=== PATIENT | male | born 1940 | race Caucasian/White ===

== ENCOUNTER 2019-09-11 11:49 | Outpatient (CLI) | payer MEDICARE, BC ==
[2019-09-11] VITALS (21 sets, daily range): BP systolic 116–150; BP diastolic 70–94
[~2019-09-11 11:49] MED LIST: CARV3.12 PO; PANT-47 PO; RIVA15TA PO
== END 2019-09-11 23:59 | disposition home or self-care (01) ==
LOC: CARD DIAG 11:49
PROVIDERS: ATTEND Internal Medicine Cardiovascular Disease
DX: R42 Dizziness and giddiness (principal)
CPT/HCPCS: 93660

== ENCOUNTER 2019-11-20 06:13 | Day surgery (SDC) | payer MEDICARE, BC ==
[2019-11-19 12:43] LABS: BASOPHILS # (AUTO) 0.1 X10'3 (0-0.2); BASOPHILS % (AUTO) 1.3 % (0-1); EOSINOPHILS # (AUTO) 0.2 X10'3 (0-0.9); EOSINOPHILS % (AUTO) 2.8 % (0-6); HEMATOCRIT 41.5 % (42.0-52.0); LYMPHOCYTES # (AUTO) 1.8 X10'3 (1.1-4.8); LYMPHOCYTES % (AUTO) 22.7 % (21-51); MEAN CORPUSCULAR HGB CONC 33.7 g/dL (33.0-36.5); MEAN CORPUSCULAR VOLUME 97.9 FL (78-98); MEAN PLATELET VOLUME 8.1 FL (7.4-10.4); MONOCYTES # (AUTO) 0.8 X10'3 (0-0.9); MONOCYTES % (AUTO) 9.6 % (2-12); NEUTROPHILS # (AUTO) 5.1 X10'3 (1.8-7.7); NEUTROPHILS % (AUTO) 63.6 % (42-75); PLATELET COUNT 186 X10'3 (140-440); RED BLOOD COUNT 4.24 X10'6 (4.70-6.10); RED CELL DISTRIBUTION WIDTH 12.7 % (11.5-14.5)
[2019-11-19 12:52] LABS: ALBUMIN 3.2 G/DL (3.4-5.0); ANION GAP 7 (8-16); BLOOD UREA NITROGEN 19 MG/DL (7-18); BUN/CREATININE RATIO 18.1 (5.4-32.0); CALCIUM 8.8 MG/DL (8.5-10.1); CHLORIDE 105 MMOL/L (99-107); CREATININE 1.05 MG/DL (0.60-1.10); GLUCOSE 100 MG/DL (70-104); POTASSIUM 4.1 MMOL/L (3.5-5.1); SODIUM 142 MMOL/L (135-145); TOTAL CARBON DIOXIDE 30.4 MMOL/L (24-32); eGFR 68 ML/MIN
[2019-11-19 12:56] LABS: PARTIAL THROMBOPLASTIN TIME 27 SECONDS (22-32)
[~2019-11-20] VITALS: Ht 182.9 cm; Wt 150.2 kg
[2019-11-20] VITALS (10 sets, daily range): BP systolic 110–166; BP diastolic 38–84
[2019-11-20] MEDS ORDERED: RIVA20TA PO (06:38)
[2019-11-20] MEDS ORDERED: FLEC50TA28 PO (06:38)
[2019-11-20] MEDS ORDERED: CARV3.12 PO (06:42)
[2019-11-20] MEDS ORDERED: PANT-47 PO (06:42)
[2019-11-20] MEDS ORDERED: normal saline 1000ml 1,000 ML IV SCH (06:55)
[2019-11-20] MEDS ORDERED: cefazolin/dext.iso 2gm/50ml 50 ML IV ONE (07:00)
[2019-11-20] MEDS ORDERED: ceFAZolin/D5W- 1GM premix 50 ML IV ONE (07:30)
[2019-11-20] MEDS ORDERED: midazolam 2 mg/2 ml injection ONE ×2 (07:38→08:31)
[2019-11-20] MEDS ORDERED: fentaNYL/PF 50MCG/1 ML 2ML syringe ONE ×2 (07:38→09:37)
[2019-11-20] MEDS ORDERED: LIDOcaine 1% W/epiNEPHrine 1:100,000 20ml vial ONE ×2 (07:39→08:44)
[2019-11-20] MEDS ORDERED: ceFAZolin 1000mg inj ONE (07:39)
[2019-11-20] MEDS ORDERED: iohexol 350 MG/ML 50ML vial IV ONE ×2 (08:25→08:36)
[2019-11-20] MEDS ORDERED: proCHLORperazine 10 MG/2 ml inj ONE (08:47)
--- NOTE | 2019-11-20 10:05 | NUR ---
Pt back in room. IV not working, unable to flush. Caitlin CAMARENA PICC line nurse being paged to start new IV. Pt denies pain, denies cp. Pt site dressing CD&I. VS stable as charted. Pt sitting up in bed A/O.
[2019-11-20] MEDS ORDERED: HYDROcodone/acetaminophen 10/325mg tab PO PRN (10:15)
[2019-11-20] MEDS ORDERED: HYDROcodone/acetaminophen 5mg/325mg tablet PO PRN (10:15)
--- NOTE | 2019-11-20 10:15 | NUR ---
Problems reprioritized. Patient report given, questions answered & plan of care reviewed with Yu CAMARENA.
[2019-11-20] MEDS ORDERED: vancomycin/NS 1 GM ADD-VANTAGE 250 ML X 1 DOSE IV ONE (12:00)
[2019-11-20] MEDS ORDERED: ceFAZolin 1GM/D5W- ADD-VANTAGE 50 ML IV SCH (16:00)
== END 2019-11-20 15:00 | disposition home or self-care (01) ==
LOC: SSTAY O 06:13
PROVIDERS: ATTEND Internal Medicine Cardiovascular Disease
DX: I49.5 Sick sinus syndrome (principal); I10 Essential (primary) hypertension; E78.5 Hyperlipidemia, unspecified; G47.30 Sleep apnea, unspecified; E55.9 Vitamin D deficiency, unspecified; I48.0 Paroxysmal atrial fibrillation; E66.9 Obesity, unspecified; Z68.41 Body mass index [BMI] 40.0-44.9, adult; Z86.718 Personal history of other venous thrombosis and embolism; Z85.828 Personal history of other malignant neoplasm of skin; Z98.890 Other specified postprocedural states; Z87.891 Personal history of nicotine dependence; Z86.711 Personal history of pulmonary embolism
CPT/HCPCS: 33208; 36415; 71046; 80048; 85025; 85610; 85730; 93005; 99152; 99153; C1785; C1894; C1898; J0690; J0780; J2250; J3010; J3370; J7030; Q9967; 76937; A4565; A4620; A6258; A6449

== ENCOUNTER 2019-11-30 11:41 | Outpatient (CLI) | payer MEDICARE, BC ==
[~2019-11-30 11:41] MED LIST changes: +FLEC50TA28 PO; -RIVA15TA PO; +RIVA20TA PO
== END 2019-11-30 23:59 | disposition home or self-care (01) ==
LOC: RAD 11:41
DX: G47.33 Obstructive sleep apnea (adult) (pediatric) (principal)
CPT/HCPCS: 95819

== ENCOUNTER 2021-04-01 08:37 | Outpatient (CLI) | payer MEDICARE, BC ==
[~2021-04-01] VITALS: Ht 185.4 cm; Wt 123.6 kg
[2021-04-01] MEDS ORDERED: normal saline 500ml IV soln 500 ML IV ONE (09:20)
[2021-04-01] MEDS ORDERED: regadenoson 0.4mg/5ml syringe IV PRN (09:20)
[2021-04-01] MEDS ORDERED: aminophylline 250mg/10ml inj. IV PRN (09:20)
[2021-04-01] MEDS ORDERED: regadenoson 0.4mg/5ml syringe IV ONE (09:20)
[2021-04-01] MEDS ORDERED: nitroGLYCERIN 0.4mg SUBLingual tab SL PRN (09:20)
[2021-04-01 10:08] VITALS: BP 127/69
[2021-04-01 10:26] VITALS: BP 115/52
[2021-04-01 10:27] VITALS: BP 124/58
[2021-04-01 10:28] VITALS: BP 121/60
[2021-04-01 10:29] VITALS: BP 119/67
[2021-04-01 10:30] VITALS: BP 127/58
== END 2021-04-01 23:59 | disposition home or self-care (01) ==
LOC: RAD 08:37
PROVIDERS: ATTEND Internal Medicine Cardiovascular Disease
DX: I08.8 Other rheumatic multiple valve diseases (principal); I48.91 Unspecified atrial fibrillation; R06.02 Shortness of breath
CPT/HCPCS: 78452; 93017; 93306; A9500; J2785; J7040

== ENCOUNTER 2022-08-06 12:57 | Emergency (ER) | payer MEDICARE, BC ==
[~2022-08-06] VITALS: Ht 185.4 cm; Wt 113.0 kg
[2022-08-06 13:23] LABS: BASOPHILS # (AUTO) 0.1 X10'3 (0-0.2); EOSINOPHILS # (AUTO) 0.1 X10'3 (0-0.9); EOSINOPHILS % (AUTO) 1.2 % (0-6); HEMATOCRIT 40.4 % (42.0-52.0); HEMOGLOBIN 13.4 g/dl (14.0-17.9); LYMPHOCYTES % (AUTO) 14.7 % (21-51); MEAN CORPUSCULAR HEMOGLOBIN 33.8 PG (27.0-31.0); MEAN CORPUSCULAR HGB CONC 33.2 g/dL (33.0-36.5); MEAN PLATELET VOLUME 8.9 FL (7.4-10.4); MONOCYTES # (AUTO) 0.6 X10'3 (0-0.9); MONOCYTES % (AUTO) 8.7 % (2-12); NEUTROPHILS # (AUTO) 5.1 X10'3 (1.8-7.7); NEUTROPHILS % (AUTO) 74.4 % (42-75); PLATELET COUNT 168 X10'3 (140-440); RED BLOOD COUNT 3.96 X10'6 (4.70-6.10); RED CELL DISTRIBUTION WIDTH 14.8 % (11.5-14.5); WHITE BLOOD COUNT 6.9 X10'3 (4.5-11.0)
[2022-08-06 13:49] LABS: ALANINE AMINOTRANSFERASE 29 U/L (12-78); ALBUMIN 3.5 G/DL (3.4-5.0); ALBUMIN/GLOBULIN RATIO 0.9 (1.1-1.5); ALKALINE PHOSPHATASE 71 IU/L (46-116); ANION GAP 7 (8-16); ASPARTATE AMINO TRANSFERASE 27 U/L (10-37); BILIRUBIN,TOTAL 0.6 MG/DL (0.1-1.0); BLOOD UREA NITROGEN 25 MG/DL (7-18); BUN/CREATININE RATIO 22.7 (5.4-32.0); CALCIUM 9.1 MG/DL (8.5-10.1); CHLORIDE 104 MMOL/L (99-107); GLUCOSE 108 MG/DL (70-104); POTASSIUM 4.8 MMOL/L (3.5-5.1); SODIUM 137 MMOL/L (135-145); TOTAL CARBON DIOXIDE 26.2 MMOL/L (24-32); TOTAL PROTEIN 7.4 G/DL (6.4-8.2); eGFR 64 ML/MIN
[2022-08-06 16:12] VITALS: BP 100/60
[2022-08-06] MEDS ORDERED: CARV12.5 PO (17:11)
== END 2022-08-06 17:48 | disposition home or self-care (01) ==
LOC: ER 12:57
DX: I48.91 Unspecified atrial fibrillation (principal); M19.90 Unspecified osteoarthritis, unspecified site
CPT/HCPCS: 36415; 71045; 80053; 83880; 84484; 85025; 93005; 99285

== ENCOUNTER 2022-09-16 06:57 | Day surgery (SDC) | payer MEDICARE, BC ==
[2022-09-15 14:03] LABS: BASOPHILS # (AUTO) 0.1 X10'3 (0-0.2); BASOPHILS % (AUTO) 1.7 % (0-1); EOSINOPHILS # (AUTO) 0.1 X10'3 (0-0.9); EOSINOPHILS % (AUTO) 2.4 % (0-6); HEMATOCRIT 38.1 % (42.0-52.0); HEMOGLOBIN 12.5 g/dl (14.0-17.9); LYMPHOCYTES % (AUTO) 20.3 % (21-51); MEAN CORPUSCULAR HEMOGLOBIN 33.4 PG (27.0-31.0); MEAN CORPUSCULAR HGB CONC 32.7 g/dL (33.0-36.5); MEAN CORPUSCULAR VOLUME 102.1 FL (78-98); MONOCYTES # (AUTO) 0.6 X10'3 (0-0.9); MONOCYTES % (AUTO) 11.4 % (2-12); NEUTROPHILS # (AUTO) 3.2 X10'3 (1.8-7.7); NEUTROPHILS % (AUTO) 64.2 % (42-75); PLATELET COUNT 167 X10'3 (140-440); RED BLOOD COUNT 3.73 X10'6 (4.70-6.10); RED CELL DISTRIBUTION WIDTH 13.9 % (11.5-14.5)
[2022-09-15 14:12] LABS: ALBUMIN 3.5 G/DL (3.4-5.0); ANION GAP 6 (8-16); BLOOD UREA NITROGEN 25 MG/DL (7-18); BUN/CREATININE RATIO 25.5 (5.4-32.0); CALCIUM 8.8 MG/DL (8.5-10.1); CHLORIDE 105 MMOL/L (99-107); CREATININE 0.98 MG/DL (0.60-1.10); GLUCOSE 104 MG/DL (70-104); POTASSIUM 4.6 MMOL/L (3.5-5.1); SODIUM 139 MMOL/L (135-145); TOTAL CARBON DIOXIDE 27.8 MMOL/L (24-32); eGFR 73 ML/MIN
[2022-09-16] VITALS (14 sets, daily range): BP systolic 110–133; BP diastolic 70–84
[~2022-09-16] VITALS: Ht 185.4 cm; Wt 115.7 kg
[~2022-09-16 06:57] MED LIST changes: +CARV12.5 PO
[2022-09-16] MEDS ORDERED: LORazepam 0.5 MG tablet PO ONE (07:25)
[2022-09-16] MEDS ORDERED: amiodarone 150mg/dext, iso-os 100 ML IV ONE (07:25)
[2022-09-16] MEDS ORDERED: atropine 0.1mg/ml 10ml syringe IV ONE (07:25)
[2022-09-16] MEDS ORDERED: diphenhydrAMINE 25mg capsule PO ONE (07:25)
[2022-09-16] MEDS ORDERED: MIDAZolam 1mg/ml 10ml vial IV ONE (07:25)
[2022-09-16] MEDS ORDERED: morphine 10mg/ml inj. IV ONE (07:25)
[2022-09-16] MEDS ORDERED: FLEC100T2 PO (07:34)
[2022-09-16] MEDS ORDERED: LAN0.125T PO (07:34)
[2022-09-16] MEDS ORDERED: FLO0.4C PO (07:34)
[2022-09-16] MEDS ORDERED: FURO20TA4 PO (07:34)
== END 2022-09-16 11:20 | disposition home or self-care (01) ==
LOC: SSTAY O 06:57
PROVIDERS: ATTEND Internal Medicine Cardiovascular Disease
DX: I48.19 Other persistent atrial fibrillation (principal); I10 Essential (primary) hypertension; E78.5 Hyperlipidemia, unspecified; E55.9 Vitamin D deficiency, unspecified; I49.5 Sick sinus syndrome; G47.30 Sleep apnea, unspecified; E66.9 Obesity, unspecified; Z68.33 Body mass index [BMI] 33.0-33.9, adult; Z86.718 Personal history of other venous thrombosis and embolism; Z86.711 Personal history of pulmonary embolism; Z85.828 Personal history of other malignant neoplasm of skin; Z95.0 Presence of cardiac pacemaker; Z98.890 Other specified postprocedural states; Z87.891 Personal history of nicotine dependence; Z79.899 Other long term (current) drug therapy; Z79.01 Long term (current) use of anticoagulants
CPT/HCPCS: 36415; 80048; 85025; 85610; 92960; 93005; J2250; J2274; J7030; A4620

== ENCOUNTER 2024-08-20 10:53 | Emergency (ER) | payer MEDICARE, BC ==
[~2024-08-20] VITALS: Ht 182.9 cm; Wt 104.5 kg
[~2024-08-20 10:53] MED LIST changes: -CARV3.12 PO; +FLEC100T2 PO; -FLEC50TA28 PO; +FLO0.4C PO; +FURO20TA4 PO; +LAN0.125T PO; -PANT-47 PO
[2024-08-20 11:12] VITALS: TEMP 97.3
[2024-08-20 11:45] LABS: BASOPHILS # (AUTO) 0.1 X10'3 (0-0.2); BASOPHILS % (AUTO) 0.9 % (0-1); EOSINOPHILS # (AUTO) 0.1 X10'3 (0-0.9); EOSINOPHILS % (AUTO) 1.7 % (0-6); HEMATOCRIT 37.3 % (42.0-52.0); HEMOGLOBIN 12.4 g/dl (14.0-17.9); LYMPHOCYTES # (AUTO) 1.1 X10'3 (1.1-4.8); LYMPHOCYTES % (AUTO) 13.4 % (21-51); MEAN CORPUSCULAR HEMOGLOBIN 32.8 PG (27.0-31.0); MEAN CORPUSCULAR HGB CONC 33.2 g/dL (33.0-36.5); MEAN CORPUSCULAR VOLUME 98.7 FL (78-98); MONOCYTES # (AUTO) 0.6 X10'3 (0-0.9); MONOCYTES % (AUTO) 7.2 % (2-12); NEUTROPHILS # (AUTO) 6.3 X10'3 (1.8-7.7); NEUTROPHILS % (AUTO) 76.8 % (42-75); PLATELET COUNT 192 X10'3 (140-440); RED BLOOD COUNT 3.79 X10'6 (4.70-6.10); RED CELL DISTRIBUTION WIDTH 14.9 % (11.5-14.5); WHITE BLOOD COUNT 8.2 X10'3 (4.5-11.0)
[2024-08-20 12:02] LABS: ALANINE AMINOTRANSFERASE 22 U/L (12-78); ALBUMIN 3.3 G/DL (3.4-5.0); ALBUMIN/GLOBULIN RATIO 0.8 (1.1-1.5); ALKALINE PHOSPHATASE 47 IU/L (46-116); ANION GAP 8 (8-16); ASPARTATE AMINO TRANSFERASE 25 U/L (10-37); BILIRUBIN,TOTAL 0.5 MG/DL (0.1-1.0); BLOOD UREA NITROGEN 26 MG/DL (7-18); BUN/CREATININE RATIO 26.8 (10.0-20.0); CALCIUM 8.6 MG/DL (8.5-10.1); CHLORIDE 107 MMOL/L (99-107); CREATININE 0.97 MG/DL (0.60-1.10); POTASSIUM 4.2 MMOL/L (3.5-5.1); SODIUM 140 MMOL/L (135-145); TOTAL CARBON DIOXIDE 24.8 MMOL/L (24-32); TOTAL PROTEIN 7.5 G/DL (6.4-8.2); eCRCL 63 ML/MIN; eGFR 74 ML/MIN
[2024-08-20 12:12] LABS: PRO BRAIN NATRIURETIC PEPTIDE 4292 PG/ML (0-450)
[2024-08-20 12:32] LABS: GLUCOSE 127 MG/DL (70-104)
[2024-08-20 16:20] VITALS: BP 108/57; PULSE 121; RESP 16; O2SAT 99
== END 2024-08-20 17:46 | disposition home or self-care (01) ==
LOC: ER 10:54
DX: R00.8 Other abnormalities of heart beat (principal); I48.20 Chronic atrial fibrillation, unspecified; F17.210 Nicotine dependence, cigarettes, uncomplicated; G47.30 Sleep apnea, unspecified; M19.90 Unspecified osteoarthritis, unspecified site; Z98.890 Other specified postprocedural states; Y90.9 Presence of alcohol in blood, level not specified
CPT/HCPCS: 36415; 71045; 80053; 83880; 84484; 85025; 93005; 99285

== ENCOUNTER 2024-08-27 06:07 | Day surgery (SDC) | payer MEDICARE, BC ==
[2024-08-24 12:21] LABS: BASOPHILS # (AUTO) 0.1 X10'3 (0-0.2); BASOPHILS % (AUTO) 1.3 % (0-1); EOSINOPHILS # (AUTO) 0.1 X10'3 (0-0.9); HEMATOCRIT 36.9 % (42.0-52.0); HEMOGLOBIN 12.3 g/dl (14.0-17.9); LYMPHOCYTES # (AUTO) 0.9 X10'3 (1.1-4.8); LYMPHOCYTES % (AUTO) 15.8 % (21-51); MEAN CORPUSCULAR HGB CONC 33.3 g/dL (33.0-36.5); MEAN PLATELET VOLUME 7.8 FL (7.4-10.4); MONOCYTES # (AUTO) 0.5 X10'3 (0-0.9); MONOCYTES % (AUTO) 8.7 % (2-12); NEUTROPHILS # (AUTO) 4.2 X10'3 (1.8-7.7); NEUTROPHILS % (AUTO) 72.2 % (42-75); PLATELET COUNT 190 X10'3 (140-440); RED BLOOD COUNT 3.73 X10'6 (4.70-6.10); RED CELL DISTRIBUTION WIDTH 14.7 % (11.5-14.5); WHITE BLOOD COUNT 5.8 X10'3 (4.5-11.0)
[2024-08-24 12:27] LABS: ALBUMIN 3.2 G/DL (3.4-5.0); ANION GAP 8 (8-16); BLOOD UREA NITROGEN 22 MG/DL (7-18); BUN/CREATININE RATIO 22.4 (10.0-20.0); CALCIUM 8.5 MG/DL (8.5-10.1); CHLORIDE 105 MMOL/L (99-107); CREATININE 0.98 MG/DL (0.60-1.10); POTASSIUM 4.7 MMOL/L (3.5-5.1); SODIUM 139 MMOL/L (135-145); TOTAL CARBON DIOXIDE 26.5 MMOL/L (24-32); eGFR 73 ML/MIN
[2024-08-24 12:28] LABS: INR 1.2 INR
[2024-08-24 12:36] LABS: GLUCOSE 113 MG/DL (70-104)
[~2024-08-27] VITALS: Ht 185.4 cm; Wt 110.4 kg
[2024-08-27] VITALS (11 sets, daily range): BP systolic 97–116; BP diastolic 55–76; PULSE 67–111; RESP 11–15; TEMP 98.3; O2SAT 96–99
[2024-08-27] MEDS ORDERED: amiodarone 150mg/dext, iso-os 100 ML IV ONE (06:35)
[2024-08-27] MEDS ORDERED: diphenhydrAMINE 25mg capsule PO ONE (06:35)
[2024-08-27] MEDS ORDERED: LORazepam 0.5 MG tablet PO ONE (06:35)
[2024-08-27] MEDS ORDERED: atropine 0.1mg/ml 10ml syringe IV ONE (06:35)
[2024-08-27] MEDS ORDERED: CARV-50 PO (07:28)
[2024-08-27] MEDS ORDERED: AMI200T PO (07:28)
[2024-08-27] MEDS ORDERED: MULT-1085 PO (07:29)
[2024-08-27] MEDS: normal saline 1000ml 1,000 ML IV SCH (08:54)
[2024-08-27] MEDS: morphine 10mg/ml inj. IV ONE (08:54)
[2024-08-27] MEDS: MIDAZolam 1mg/ml 10ml vial IV ONE (08:54)
== END 2024-08-27 10:10 | disposition home or self-care (01) ==
LOC: SSTAY O 06:07
PROVIDERS: ATTEND Internal Medicine Cardiovascular Disease
DX: I48.0 Paroxysmal atrial fibrillation (principal); R53.83 Other fatigue; I10 Essential (primary) hypertension; I49.5 Sick sinus syndrome; E78.5 Hyperlipidemia, unspecified; G47.30 Sleep apnea, unspecified; Z90.49 Acquired absence of other specified parts of digestive tract; Z95.0 Presence of cardiac pacemaker; Z86.711 Personal history of pulmonary embolism; Z98.890 Other specified postprocedural states; Z79.899 Other long term (current) drug therapy
CPT/HCPCS: 36415; 80048; 85025; 85610; 92960; 93005; J2250; J2270; J7030; J2274

== ENCOUNTER 2024-09-20 07:12 | Day surgery (SDC) | payer MEDICARE, BC ==
[2024-09-19 13:18] LABS: BASOPHILS # (AUTO) 0.1 X10'3 (0-0.2); BASOPHILS % (AUTO) 1.4 % (0-1); EOSINOPHILS # (AUTO) 0.1 X10'3 (0-0.9); HEMATOCRIT 39.3 % (42.0-52.0); HEMOGLOBIN 12.8 g/dl (14.0-17.9); LYMPHOCYTES # (AUTO) 0.9 X10'3 (1.1-4.8); LYMPHOCYTES % (AUTO) 17.6 % (21-51); MEAN CORPUSCULAR HGB CONC 32.5 g/dL (33.0-36.5); MEAN CORPUSCULAR VOLUME 98.5 FL (78-98); MEAN PLATELET VOLUME 7.4 FL (7.4-10.4); MONOCYTES # (AUTO) 0.4 X10'3 (0-0.9); MONOCYTES % (AUTO) 8.4 % (2-12); NEUTROPHILS # (AUTO) 3.5 X10'3 (1.8-7.7); NEUTROPHILS % (AUTO) 70.6 % (42-75); PLATELET COUNT 179 X10'3 (140-440); RED BLOOD COUNT 3.99 X10'6 (4.70-6.10); RED CELL DISTRIBUTION WIDTH 15.4 % (11.5-14.5)
[2024-09-19 13:20] LABS: ALBUMIN 3.4 G/DL (3.4-5.0); ANION GAP 6 (8-16); BLOOD UREA NITROGEN 17 MG/DL (7-18); BUN/CREATININE RATIO 17.7 (10.0-20.0); CALCIUM 8.8 MG/DL (8.5-10.1); CHLORIDE 106 MMOL/L (99-107); CREATININE 0.96 MG/DL (0.60-1.10); GLUCOSE 92 MG/DL (70-104); POTASSIUM 4.4 MMOL/L (3.5-5.1); SODIUM 141 MMOL/L (135-145); TOTAL CARBON DIOXIDE 29.5 MMOL/L (24-32); eGFR 75 ML/MIN
[2024-09-19 13:21] LABS: INR 1.1 INR; PROTHROMBIN TIME 11.6 SECONDS (9.0-12.0)
[~2024-09-20] VITALS: Ht 185.4 cm; Wt 103.9 kg
[~2024-09-20 07:12] MED LIST changes: +AMI200T PO; +CARV-50 PO; -CARV12.5 PO; -FLEC100T2 PO; -FURO20TA4 PO; -LAN0.125T PO; +MULT-1085 PO
[2024-09-20] MEDS ORDERED: morphine 10mg/ml inj. IV ONE (07:25)
[2024-09-20] MEDS ORDERED: normal saline 1000ml 1,000 ML IV SCH (07:25)
[2024-09-20] MEDS ORDERED: MIDAZolam 1mg/ml 10ml vial IV ONE (07:25)
[2024-09-20] MEDS ORDERED: atropine 0.1mg/ml 10ml syringe IV ONE (07:25)
[2024-09-20] MEDS ORDERED: LORazepam 0.5 MG tablet PO ONE (07:25)
[2024-09-20] MEDS ORDERED: amiodarone 150mg/dext, iso-os 100 ML IV ONE (07:30)
[2024-09-20] MEDS ORDERED: diphenhydrAMINE 25mg capsule PO ONE (07:30)
== END 2024-09-20 08:30 | disposition home or self-care (01) ==
LOC: SSTAY O 07:12
PROVIDERS: ATTEND Internal Medicine Cardiovascular Disease
DX: I48.19 Other persistent atrial fibrillation (principal); Z53.8 Procedure and treatment not carried out for other reasons; I49.5 Sick sinus syndrome; E78.5 Hyperlipidemia, unspecified; I10 Essential (primary) hypertension; Z79.899 Other long term (current) drug therapy; Z86.711 Personal history of pulmonary embolism; Z86.718 Personal history of other venous thrombosis and embolism; Z85.828 Personal history of other malignant neoplasm of skin; E66.9 Obesity, unspecified; Z85.46 Personal history of malignant neoplasm of prostate
CPT/HCPCS: 36415; 80048; 85025; 85610; 93005; J7030

== ENCOUNTER 2024-12-26 10:15 | Outpatient (CLI) | payer MEDICARE, BC ==
[~2024-12-26 10:15] MED LIST changes: -FLO0.4C PO; +TAMS-55 PO
[2024-12-26 10:43] LABS: TOTAL HEMOGLOBIN 12.8 G/dl (13.5-17.5)
[2024-12-26 11:55] VITALS: PULSE 80; RESP 16; O2SAT 95
--- NOTE | 2024-12-31 13:40 | PROCEDURE NOTE - Respiratory ---
Procedure Note-Respiratory Providers to CC Copies To 1: COREEN HERNANDEZ MD Procedure Name: This is a complete pulmonary function study dated December 26, 2024. Hemoglobin measurement was done as part of the study. Spirometry measurements: Both the forced vital capacity and the FEV1 are normal. The FEV1 ratio is normal. All of the flow rate measurements are normal. Bronchodilator was not administered as part of the study. Lung volume measurements: The total lung capacity and the functional residual capacity are both normal. The residual volume is normal. Lung diffusion measurement: The DLCO measurement is normal. It is noted that the hemoglobin measurement is normal. Airway resistance measurement: There is no increase in the airway resistance. Overall conclusion: Normal pulmonary function study. Should this patient remain on amiodarone therapy, it is recommended that repeat pulmonary function testing be ordered in approximately one year. We have no previous studies for comparison. JIMMIE REID MD Dec 31, 2024 13:40
== END 2024-12-26 23:59 | disposition home or self-care (01) ==
LOC: MERGE 10:15 → RT 10:15
PROVIDERS: ATTEND Internal Medicine Cardiovascular Disease
DX: R06.02 Shortness of breath (principal); Z79.2 Long term (current) use of antibiotics
CPT/HCPCS: 85018; 94010; 94727; 94729; 94760